=== PATIENT | male | born 1955 | race Caucasian/White ===

== ENCOUNTER 2019-03-31 06:46 | Day surgery (SDC) | payer MEDICAID ==
[~2019-03-31] VITALS: Ht 167.6 cm; Wt 76.7 kg
[~2019-03-31 06:46] MED LIST: ALPR-304 PO; ARIP2TAB3 PO; ASPI-1264 PO; ATOR10TA87 PO; CARV25TA PO; CLOP75TA35 PO; EFF37.5XRC PO; FURO-150 PO; GABA300C PO; INSU100C4 SQ; LANTUS SQ; LISI-222 PO; NORT10CA2 PO; OXYC40TA4 PO; PANT40TA39 PO; PHEN300C6 PO; ROSU10TA2 PO; VENL-190 PO; VIT1TABL66 PO
[2019-03-31 06:55] VITALS: BP 159/77
[2019-03-31] MEDS ORDERED: LIDOcaine Viscous 15ml cup ONE (07:24)
[2019-03-31] MEDS ORDERED: MIDAZolam 5mg/5ml vial ONE (07:24)
[2019-03-31] MEDS ORDERED: fentaNYL/PF 50MCG/1 ML 2ML syringe ONE ×2 (07:24→08:55)
[2019-03-31] MEDS ORDERED: ATOR-2 PO (07:28)
[2019-03-31] MEDS ORDERED: GABA-532 PO (07:29)
[2019-03-31] MEDS ORDERED: LANTUS SQ (07:31)
[2019-03-31] MEDS ORDERED: OMEP20CA11 PO (07:38)
[2019-03-31] MEDS ORDERED: metformin PO (07:39)
[2019-03-31] MEDS ORDERED: ALOG25TA2 PO (07:40)
[2019-03-31] MEDS ORDERED: CITA20TA2 PO (07:42)
[2019-03-31] MEDS ORDERED: FAMO40TA7 PO (07:43)
[2019-03-31] MEDS ORDERED: FURO20TA4 PO (07:44)
[2019-03-31] MEDS ORDERED: METO-292 PO (07:45)
[2019-03-31] MEDS ORDERED: cefazolin/dext.iso 2gm/100ml 100 ML IV ONE (08:35)
[2019-03-31 08:50] VITALS: BP 155/77
[2019-03-31 09:00] VITALS: BP 151/79
[2019-03-31 09:10] VITALS: BP 155/76
[2019-03-31 09:20] VITALS: BP 160/75
== END 2019-03-31 09:50 | disposition home or self-care (01) ==
LOC: GI LAB 06:46
PROVIDERS: ATTEND Internal Medicine Gastroenterology
DX: K22.2 Esophageal obstruction (principal); K21.0 Gastro-esophageal reflux disease with esophagitis; K29.70 Gastritis, unspecified, without bleeding; K29.80 Duodenitis without bleeding
CPT/HCPCS: 43239; 43246; 43248; 99152; 99153; J2250; J3010; J7040; A4620

== ENCOUNTER 2019-05-24 15:17 | Outpatient (CLI) | payer OTHER ==
[~2019-05-24 15:17] MED LIST changes: +ALOG25TA2 PO; -ALPR-304 PO; -ARIP2TAB3 PO; +ATOR-2 PO; -ATOR10TA87 PO; +CITA20TA2 PO; +FAMO40TA7 PO; +FURO20TA4 PO; +GABA-532 PO; -GABA300C PO; +METO-292 PO; -NORT10CA2 PO; +OMEP20CA11 PO; -OXYC40TA4 PO; -PANT40TA39 PO; -VIT1TABL66 PO; +metformin PO
== END 2019-05-24 23:59 | disposition home or self-care (01) ==
LOC: RAD 15:17
PROVIDERS: ATTEND Internal Medicine
DX: I69.391 Dysphagia following cerebral infarction (principal); R13.12 Dysphagia, oropharyngeal phase; I11.0 Hypertensive heart disease with heart failure; I50.9 Heart failure, unspecified; E11.9 Type 2 diabetes mellitus without complications; F17.200 Nicotine dependence, unspecified, uncomplicated
CPT/HCPCS: 74230